=== PATIENT | female | born 1985 | race Caucasian/White ===

== ENCOUNTER 2017-09-25 19:41 | Emergency (ER) | payer OTHER ==
[~2017-09-25] VITALS: Ht 167.6 cm; Wt 105.0 kg
[~2017-09-25 19:41] MED LIST: BCPILLS PO; MECL1TAB42 PO; PANT1TAB3 PO
[2017-09-25 19:51] VITALS: BP 135/95; PULSE 109; TEMP 36.8; O2SAT 100; Ht 167.6 cm; Wt 105.0 kg
[2017-09-25] MEDS ORDERED: OXYCODONE/ACETAMINOPHEN 5-325 TAB PO ONE (20:15)
--- NOTE | 2017-09-25 20:41 | DIAGNOSTIC IMAGING REPORT ---
R ANKLE MIN 3 VIEWS ROUTINE CLINICAL HISTORY: Right ankle pain status post trauma COMPARISON: None. DISCUSSION: No fractures or dislocations are visualized. IMPRESSION: No fractures or dislocations identified. Electronically signed by: Nick Singh M.D. 09/25/2017 8:40 PM Dictated Date/Time: 09/25/2017 8:39 PM
--- NOTE | 2017-09-25 20:42 | DIAGNOSTIC IMAGING REPORT ---
R FOOT MIN 3 VIEWS ROUTINE CLINICAL HISTORY: Right foot pain status post trauma COMPARISON: 03/05/2012 DISCUSSION: Postsurgical changes involve the second and third metatarsal heads. There are no acute fractures. There are no dislocations. There are no erosive changes. IMPRESSION: Postsurgical change. No acute fractures. Electronically signed by: Nick Singh M.D. 09/25/2017 8:41 PM Dictated Date/Time: 09/25/2017 8:40 PM
[2017-09-25] MEDS ORDERED: TRAM-10 PO (21:06)
[2017-09-25] MEDS ORDERED: TRAMADOL HCL 50 MG HOME PACK PO ONE (21:15)
--- NOTE | 2017-09-26 00:42 | EMERGENCY ROOM VISIT NOTE ---
ED Visit Note First contact with patient: 19:56 Chief Complaint: Right foot and ankle pain. History of Present Illness: Ms. Garcia is a 32-year-old white female who is brought into the ED via wheelchair accompanied by male friend complaining of right foot and ankle pain. Historically patient reports she has had right foot surgery on her toes many years ago. Patient reports approximately 2 hours ago she reports she was walking to the car , slipped on the porch and twisted her right ankle and then slid her foot into a curb. She reports she immediately experienced right ankle and foot pain after her injury. Since that time her pain has been constant. She places her discomfort over the area of the medial and lateral malleolus, anterior talus and the fourth metatarsal. She describes her pain as a combination of throbbing and sharp she rates her discomfort 8/10. Her pain is nonradiating. Her pain worsens with ambulation, all movements of the ankle, palpation, inversion, plantar flexion. She has not identified any alleviating factors related to the pain. He has not taken a medication for pain prior to arrival at the hospital. She denies any loose related knee pain, lower leg pain, foot weakness/numbness/tingling. Review of Systems: As noted above in history of present illness. Past Medical History: As previously noted and unspecified right knee surgery. Current Medications: Protonix, control. Allergies to Medications: Patient denies. Social History: Patient is currently employed; she feels safe in her home environment; she admits to back or now call use. Physical Examination: Vital Signs: Date Time Temp Pulse Resp B/P (MAP) Pulse Ox O2 Delivery O2 Flow Rate FiO2 09/25/17 19:51 36.8 109 18 135/95 100 Room Air GENERAL: 32-year-old female in moderate distress due to pain, nontoxic-appearing , afebrile and hemodynamically stable. NEUROLOGICAL: Awake, alert and oriented to person, place and time. Answering questions appropriately and following commands. SKIN: Warm, dry and pink. No soft tissue trauma noted. LEFT LOWER EXTREMITY: No gross bony deformity. No shortening or malrotation. No tenderness in the hip, thigh, knee and anterior lower leg. Mild tenderness over the 2-3 cm above the talus over the tibia and fibula. Moderate tenderness over the medial and lateral malleolus and is moderate swelling throughout the ankle. I do not appreciate any bony deformity or crepitus. She has significant amount of tenderness with all ligamentous testing. There is mild tenderness over the fourth metatarsal without bony deformity or crepitus. She was able to wiggle her toes without difficulty. Distal pulses are intact. Capillary refill is brisk. She was able to distinguish light sensations to light touch. Decreased range of motion in all movements of the ankle due to pain and swelling. ED Course: Patient is assessed as noted above. Patient's medication list was reviewed. Patient was given one Percocet 5/325 mg tablet by mouth for pain and ice for swelling. Right Ankle X-Rays: Were read by myself and the radiologist showing no acute fractures or dislocations. Right Foot X-Rays: Were read by myself and the radiologist showing no acute fractures or dislocations. Radiologist does note postsurgical changes involving the second and third metatarsal heads. Patient was placed in a postop shoe and on nonweightbearing crutches. Patient was educated about today's findings and instructed on her treatment plan ; she verbalized understanding and agreement with this plan. Clinical Impression: Right ankle pain. Right foot pain. Disposition: Patient discharged home in stable condition accompanied by male friend; prior to departure she was reassessed and subjectively reported she was feeling better and rated her discomfort 6/10. Plan: Comfort measures including rest, ice, elevation, gel splint and crutches use and a prescription for Ultram were discussed with the patient; her name was checked in the state database and no red flags were noted and she was given appropriate narcotic precautions. Patient was encouraged to follow-up with child support specialist if no better in 7 days. Patient was encouraged return ED for worsening/uncontrolled pain, worsening/ uncontrolled swelling, foot weakness/numbness/tingling or any new/concerning symptoms
== END 2017-09-25 21:14 | disposition home or self-care (01) ==
LOC: C.EDB 19:42 → C.EDD 21:14
DX: M79.671 Pain in right foot (principal); M25.571 Pain in right ankle and joints of right foot; Z98.890 Other specified postprocedural states

== ENCOUNTER → 2018-01-27 | Day surgery (SDC) | payer OTHER ==
[2017-12-07 08:35] VITALS: BMI 34.0
--- NOTE | 2018-01-26 22:43 | History and Physical ---
History & Physical Date January 26, 2018. Chief Complaint right ankle pain History of Present Illness The patient is a 33 year old female with complaints of right ankle pain after a fall on 09.25.17. She had an MRI which noted a probable ATFL tear and a stress fx of the neck of the talus. She did not progress with conservative management and is now being set up for surgical tx. Past Medical/Surgical History Medical Problems: (1) ESOPHAGEAL REFLUX Surgical Problems: (1) S/P tonsillectomy (2) knee surgery (3) foot surgery Social history Occasional smoker Allergies Coded Allergies: No Known Allergies (Verified , 12/07/17) Home Medications Scheduled Control Pills ( Control Pills), 1 TAB PO DAILY Pantoprazole (Protonix), 40 MG PO QAM Scheduled PRN Diphenhydramine Hcl (Benadryl Allergy), 25 MG PO DAILY PRN for Seasonal Allergies Physical Examination Skin: warm/dry, no rash Eyes: normal inspection ENT: normal ENT inspection Head: normocephalic, atraumatic Neck: supple, no adenopathy, trachea midline Respiratory/Chest: lungs clear, normal breath sounds, no respiratory distress Cardiovascular: regular rate, rhythm Abdomen / GI: normal bowel sounds, non tender Extremities: + pertinent finding (Right ankle: Lateral ankle swelling. Tender over the ATFL. Painful PROM. Anterior drawer and talar tilt are positive.) Neurologic/Psych: no motor/sensory deficits, alert, oriented x 3 Diagnosis Right ankle instability Right ankle anterior talofibular ligament tear Right talus stress fx at the neck of the talus. Plan of Treatment Recommend a right ankle scope with synovectomy, open modified Brostrom with Arthrex internal brace, closed tx of talus fx. All potential risks, benefits, complications, alternatives, and rehab have been discussed with the patient and she wishes to proceed. She will be scheduled for 01.27.18 with plan for ASA 81 mg BID x 30 days.
[~2018-01-27] VITALS: Ht 170.2 cm; Wt 100.0 kg
[~2018-01-27] MED LIST changes: +ACET-1311 PO; +ACETAMINOPHEN 1000 MG/100 ML IV IV ONE; +ASPI81TA28 PEG; +ATROPINE SULFATE 0.1 MG/ML 5ML SYR IV PRN; +BUPIVACAINE 0.5 % 5 MG/1 ML MPF 30ML VIAL ONE; +CEFAZOLIN 2000MG IV PUSH 15 ML IV SCH; +CIPROFLOXACIN / D5W 400 MG IV SCH; +DEXAMETHASONE SOD INJ 4 MG/ML VIAL ONE; +DIPH1TAB87 PO; +EpHEDrine SULFATE 50MG/5ML SYR ONE; +EpHEDrine SULFATE INJ 50 MG/ML AMP IV PRN; +EpINEphrine HCL INJ 1 MG/ML 1ML SYRINGE ONE; +EpINEphrine INJ 1MG/ML AMP 1 MG/ML AMP ONE; +FENTANYL CITRATE INJ 50 MCG/1 ML 2 ML VIAL ONE; +FLUMAZENIL 0.1 MG/1 ML 10 ML VIAL IV PRN; +HYDROmorphone INJ 0.5 MG/0.5 ML SYR ONE; +HYDROmorphone INJ 1 MG/ML SYR IV PRN; +HYDROmorphone INJ 2 MG/ML SYR/VIAL ONE; +LABETALOL HCL IV 5 MG/ML 20ML IV PRN; +LACTATED RINGER'S 1000ML 1,000 ML IV SCH; +LIDOCAINE HCL 2% 2 ML VIAL (20MG/ML) ONE; -MECL1TAB42 PO; +MEPERIDINE HCL 25 MG/ML CARP IV PRN; +MIDAZOLAM HCL 1 MG/ML 2ML VIAL ONE; +MoRPHine SULFATE 10 MG/ML CARP/VIAL IV PRN; +NALOXONE HCL 0.4 MG/1 ML VIAL/CARP IV PRN; +ONDANSETRON INJ 2 MG/ML 2 ML VIAL IV PRN; +ONDANSETRON INJ 2 MG/ML 2 ML VIAL ONE; +OXYC-57 PO; +OXYCODONE/ACETAMINOPHEN 5-325 TAB PO PRN; +PHENYLEPHRINE 100MCG/ML 5ML SYR IV PRN; +PHENYLEPHRINE 100MCG/ML 5ML SYR ONE; +PROM25TA9 PO; +PROPOFOL IV EMULSION 10 MG/ML 20 ML VIAL ONE; +ROPIVACAINE 0.5% 5 MG/ML 30 ML VIAL ONE
[2018-01-27 10:15] VITALS: BP 123/87; PULSE 85; TEMP 36.7; O2SAT 99; Ht 170.2 cm; Wt 100.0 kg
--- NOTE | 2018-01-27 10:48 | History & Physical Bridge Note ---
H&P Re-Evaluation Bridge Note: I have examined the patient, reviewed the History & Physical and in the interval since the performance of the History & Physical I have noted the following changes of clinical significance: No changes noted
--- NOTE | 2018-01-27 15:52 | Discharge Instructions ---
Discharge Instructions Date of Service January 27, 2018. Admission Reason for Admission: Nondisplaced Fracture Of Neck Of Right Talus, Init Discharge Discharge Diagnosis / Problem: right ankle instability Discharge Goals Goal(s): Decrease discomfort, Improve function Activity Recommendations Activity Limitations: per Instructions/Follow-up section Weightbearing Status: Right non-weightbearing . Instructions / Follow-Up Instructions / Follow-Up ACTIVITY RECOMMENDATIONS: Limitations: No weight bearing to affected limb at all times. SPECIAL CARE INSTRUCTIONS: * Take Aspirin 81 mg by mouth every 12 hours for 30 days. * Some drainage onto the dressing is normal and is no cause for alarm. * Some swelling is natural especially after walking. * When resting, keep your foot elevated above the level of your heart. * Call [facility] if you notice: -Increased drainage -Fever over 101 degrees F -Severe constant pain BANDAGE: * Leave bandage/cast in place unless otherwise directed. * Keep bandage/cast dry at all times. FOLLOW UP VISIT WITH DR. FRANCE If appointment is not already scheduled: Please call [facility] after you get home today to schedule a follow-up appointment for [address] France at . Current Hospital Diet Patient's current hospital diet: Discharge Diet Recommended Diet: Regular Diet Pending Studies Studies pending at discharge: no Medical Emergencies . Who to Call and When: Medical Emergencies: If at any time you feel your situation is an emergency, please call 101 immediately. . Non-Emergent Contact Non-Emergency issues call your: Surgeon Call Non-Emergent contact if: temperature is above 101, your pain is not controlled, your pain is worsening . "Provider Documentation" section prepared by Abhishek Sun. .
--- NOTE | 2018-01-27 18:05 | [facility] Post Operative Brief Note ---
Immediate Operative Summary Operative Date January 27, 2018. Pre-Operative Diagnosis Right ankle instability, Right ankle anterior talofibular ligament tear, Right talus fx at the neck of the talus, osteochondral defect of superior lateral talus, loose body, synovitis Post-Operative Diagnosis Right ankle instability, Right ankle anterior talofibular ligament tear, Right talus fx at the neck of the talus, osteochondral defect of superior lateral talus, loose body ([id number]), synovitis Procedure(s) Performed Right Ankle Arthroscopic Debridement, Open Modified Brostrom Procedure with Arthrex Internal Brace, Closed Treatment of Talus Fracture, Drilling Osteochondral defect superior lateral talus, removal loose body ([id number]), synovectomy, Closed treatment talar neck fracture. Surgeon Dr. Adonay Oneal Restaurant Hospitality Manager Surgeon(s) None Estimated Blood Loss 2cc Findings Consistent with Post-Op Diagnosis Specimens None Drains None Anesthesia Type General Regional Complication(s) none Disposition Accompanied Pt To Recover: no Disposition: Recovery Room / PACU
[2018-01-27] MEDS: HYDROmorphone INJ 0.5 MG/0.5 ML SYR ONE ×2 (18:39→18:40)
[2018-01-27 19:34] VITALS: BP 127/82; PULSE 96; TEMP 36.4; O2SAT 98
[2018-01-27 20:02] VITALS: BP 113/76; PULSE 84; TEMP 36; O2SAT 96
--- NOTE | 2018-01-27 20:47 | OPERATIVE REPORT ---
DATE OF OPERATION: 01/27/2018 PREOPERATIVE DIAGNOSES: 1. Right ankle lateral ligament instability. 2. Anterior talofibular ligament tear. 3. Nondisplaced talar neck fracture. POSTOPERATIVE DIAGNOSES: 1. Right ankle lateral ligament instability. 2. Anterior talofibular ligament tear. 3. Nondisplaced talar neck fracture. 4. Osteochondral defect of the superior lateral talus. 5. Loose body of the right ankle (9 x 8 x 7 mm). 6. Synovitis of the ankle joint. PROCEDURES: 1. Right ankle arthroscopy with osteochondral drilling of the superior lateral talus. 2. Removal of loose body measuring (9 x 8 x 7 mm). 3. Synovectomy of the ankle joint. 4. Open modified Brostrom reconstruction with Arthrex internal brace. 5. Closed treatment talus fracture with splint. SURGEON: Baltazar Oneal DO PREDATORY ANIMAL HUNTER: None. ANESTHESIA: General with regional. SPECIMENS: None. DRAINS: None. COMPLICATIONS: None. BLOOD LOSS: 2 mL PERTINENT HISTORY: This is a 33-year-old female who sustained a twisting injury to right lower extremity, is unable to ambulate, and difficulty with weightbearing. She attempted and failed conservative management including use of a boot and a brace, physician-directed home exercises, physical therapy, anti-inflammatories and topical analgesics. The patient had an MRI, which demonstrated a nondisplaced talar neck fracture, questionable osteochondral defect superior lateral talus and a tear of the anterior talofibular ligament. Clinical features demonstrated lateral ankle ligament instability and ongoing ankle pain. The patient was scheduled for surgery as indicated. All potential risks, benefits, complications, alternatives, rehab, potential for incomplete relief of symptoms, need for further surgery, DVT, PE, , persistent pain, swelling, scarring, weakness, neurovascular injury, wound complication, hardware failure, nonunion, malunion were discussed with the patient. The patient decided to proceed with the procedure as indicated. DESCRIPTION OF PROCEDURE: After regional block was administered in the preop holding area, the patient was taken to the operative suite, placed supine on the operating room table. I reviewed consent and identification of proper operative site, the patient was anesthetized, LMA was placed. Tourniquet was placed on the right thigh over cast padding. Right lower extremity was then sterilely prepped and draped in the usual fashion, elevated and exsanguinated her bandage, tourniquet inflated to 350 mmHg. Next, right lower extremity was then sterilely prepped and draped in usual fashion. The ankle joint was injected with approximately 10 mL of 0.5% Marcaine with epinephrine followed by a small incision anterior medial aspect of the ankle joint just medial to the tibialis anterior. This was made with an 11 blade scalpel followed by placement of blunt trocar and sleeve camera and inflow. Next, sequential diagnostic arthroscopy commenced in the ankle joint, noting significant synovitis. There is a large loose body measuring 9 x 8 x 7 mm. Lateral portal was established using an 18 gauge spinal needle followed by placing 11 blade scalpel incision and then an arthroscopic grasper was used to manipulate and remove the large loose body. Upon further inspection, there was noted to be synovitis throughout, 3.5 mm sucker shaver was then used to perform synovectomy and the chondral surfaces were inspected. There was noted to be a large osteochondral defect of the superior lateral talus. At this point, a 0.035 inch K-wire was then used to make multiple drill holes into the osteochondral lesion, thus performing an osteochondral drilling. The depth of drilling was approximately 6 mm. This encouraged local mesenchymal stem cell proliferation and healing of the defect. Next, all particulate debris was flushed from the ankle joint. The arthroscope was removed followed by closure of the portal sites with interrupted 4-0 nylon sutures. Next, a 15 blade scalpel was used to make an incision on the distal lateral aspect of the fibula. The incision was deepened through the subcutaneous tissue. Meticulous hemostasis was achieved with cautery. Full thickness skin flaps were developed followed by incision of the superficial peroneal retinaculum, which was then retracted and protected. The periosteal sleeve and remnant of the anterior talofibular ligament was then sharply incised at the distal aspect of the fibula. The periosteum was then elevated at the distal lateral aspect of the fibula followed by decortication at the distal aspect of the fibula. Next, the peroneal tendon sheath was then entered with a 15 blade scalpel. The tendons were retracted and protected with a house retractor and the calcaneofibular ligament was then plicated with a #2 FiberWire suture. Next, the Arthrex internal brace drill was drilled into the lateral process of the talus avoiding both the talofibular articulation and the subtalar articulation. This was followed by placement 4.75 mm SwiveLock anchor into the lateral talus. The FiberTape and the #2 FiberWire suture were then passed through the anterior talofibular ligament and then through the undersurface of the periosteal tissue distal aspect of the fibula. The second PushLock anchor was then drilled lateral fibula. The foot was held in neutral dorsiflexion with slight eversion. This was then followed by threading of the FiberTapes through the PushLock, which was then screwed into the lateral fibula, taking care to avoid overtightening of the FiberTapes. Next, the excess suture was then cut with a 15 blade scalpel. The #2 FiberWire suture was then passed through the superficial peroneal retinaculum and then under the distal lateral fibula in a [id number] fashion. The suture was then tied and cut and then the suture limbs were then repassed distal to the fibula to force the knot stack to lie distally and to also capture the superficial peroneal retinaculum laterally. Anterior drawer testing was performed, was noted to be stable. Lateral talar tilt testing was also performed, also noted to be stable after reconstruction. The incision was copiously irrigated with sterile normal saline. The peroneal tendon sheath was then closed using 2-0 Vicryl. The dermis was closed using buried interrupted 3-0 Vicryl and the skin was closed using 4-0 nylon. A sterile compressive dressing and bulky Aric Del Rio plaster splint was applied overwrapped with an Mio wrap. The foot was held in neutral dorsiflexion and slight eversion. After the splint had hardened, the tourniquet was released. The patient was awakened and taken to recovery in stable condition. I attest to the content of the Intraoperative Record and any orders documented therein. Any exception s are noted below.
== END | disposition home or self-care (01) ==
LOC: C.ACU 09:59
PROVIDERS: ATTEND Orthopaedic Surgery Sports Medicine
DX: M25.371 Other instability, right ankle (principal); S93.491A Sprain of other ligament of right ankle, initial encounter; S92.114A Nondisplaced fracture of neck of right talus, initial encounter for closed fracture; M93.271 Osteochondritis dissecans, right ankle and joints of right foot; M24.071 Loose body in right ankle; M65.871 Other synovitis and tenosynovitis, right ankle and foot; E66.9 Obesity, unspecified; Z68.34 Body mass index [BMI] 34.0-34.9, adult; F17.200 Nicotine dependence, unspecified, uncomplicated; W19.XXXA Unspecified fall, initial encounter; Z90.89 Acquired absence of other organs; Z98.890 Other specified postprocedural states; Z79.3 Long term (current) use of hormonal contraceptives; Z79.899 Other long term (current) drug therapy

== ENCOUNTER 2019-03-27 07:27 | Inpatient (IN) ==
--- OUTSIDE RECORDS SUMMARY | 2019-03-27 07:33 | External Medical Summary | Continuity of Care Document ---
:1985 Author Name Jose G Gan, Provider Address Unavailable Unavailable , Care Team Providers Name Role Phone Richa Tovar Unavailable [email or web address], [email or web address] Unavailable Unavailable Unavailable Unavailable Unavailable Problems Chronic reflux esophagitis (530.11) (K21.0) Vulvovaginitis (616.10) (N76.0) Encounter for routine gynecological exam ination with Papanicolaou smear of cervix (V72.31) (Z01.419) Esophageal stricture (530.3) (K22.2) Ovarian cyst (620.2) (N83.20) Encounter for blood typing (V72.86) (Z01.83) Esophageal reflux (530.81) (K21.9) Pelvic pain (R10.2) Screening examination for venereal disease (V74.5) (Z11.3) Allergies and Adverse Reactions No Known Drug Allergies (Allergy) Medications Omeprazole 20 MG Oral Capsule Delayed Release; Take 1 capsule twice daily PURVI Hernadez Start: 15-Jul-2012 Quantity: 180 Refills: 2 PriLOSEC CPDR Refills: 0 Procedures History of Esophageal Dilation Status: C ompleted History of Vulvar Incision And Drainage Status: Completed History of Oral Surgery Tooth Extraction Status: Completed Immunizations Immunizations not documented Family History Unknown Family Member Family history of Hypertension (V17.49) Status: Active Comments: Family History Family history of Diabetes Mellitus (V18.0) Status: Active Comments: Family History Plan of Treatment Planned Observations Planned Goals not documented Results No Known Results Results not documented
[2019-03-27] MEDS ORDERED: OXYTOCIN 30 UNITS/500 ML BAG IV PRN ×2 (09:48→21:50)
[2019-03-27] MEDS ORDERED: miSOPROStol 50 MCG TAB PO ONE (09:59)
[2019-03-27 10:20] LABS: Hematocrit (blood only) 29.4 % (37-47); Hemoglobin 9.9 g/dL (12.0-16.0); Mean Corpuscular Volume 86.5 fL (80-100); Platelet Count 182 K/uL (130-400); RDW Coefficient of Variation 15.3 % (11.5-14.5); RDW Standard Deviation 48.1 fL (36.4-46.3); White Blood Count 8.55 K/uL (4.8-10.8)
[2019-03-27 10:29] LABS: Mean Corpuscular Hgb Conc 33.7 g/dL (32-36)
--- NOTE | 2019-03-27 12:07 | Labor Progress Brief Note ---
Date of Service March 27, 2019 met pt and spouse H&P done discussed and reviewed induction Bedside sono; Vt FHR; CAT1 Ctx; minimal VE; ft/post Plan Cytotec Results & Data Vital Signs (Past 12 Hours) Vital Signs Temp Pulse Resp BP 03/27/19 11:20 36.9 C 67 18 120/75 03/27/19 07:52 36.7 C 18 03/27/19 07:34 88 124/75
[2019-03-27] MEDS ORDERED: miSOPROStol 50 MCG TAB PO SCH (15:30)
--- NOTE | 2019-03-27 21:52 | Labor Progress Brief Note ---
Date of Service March 27, 2019 pt doing well Induction for obesity Received 2 Cytotec FHR; CAT1 Ctx irregular, minimal discussed Pitocin augmentation pt agreed Results & Data Vital Signs (Past 12 Hours) Vital Signs Temp Pulse Resp BP 03/27/19 19:00 36.8 C 61 18 130/80 03/27/19 15:44 36.9 C 20 03/27/19 15:42 72 123/69 03/27/19 12:07 37 C 68 20 133/74 03/27/19 11:20 36.9 C 67 18 120/75
[2019-03-27] MEDS: LACTATED RINGER'S 1,000 ML IV PRN (22:36)
--- NOTE | 2019-03-28 00:06 | History and Physical Report ---
DATE OF ADMISSION: 03/27/2019 HISTORY OF PRESENT ILLNESS: The patient is a 34-year-old G3, P2, due date was 03/23/2019, making her 40 weeks and 3 days, presented to labor and delivery for induction of labor secondary to obesity. The patient's has been unremarkable. LABORATORIES: Blood type O negative, antibody negative, rubella immune, GBS negative. COURSE: with no complication except for right pyelectasis of the fetus seen on several ultrasounds including maternal medicine scan. PAST MEDICAL HISTORY: History of dysphagia, history of ruptured ovarian cyst and abnormal Pap smears. PAST SURGICAL HISTORY: History of colposcopy, knee surgery and EGDs. ALLERGIES: No known drug allergies. SOCIAL HISTORY: The patient denies tobacco, drug or alcohol use. FAMILY HISTORY: Noncontributory. SHIRT TURNER HISTORY: The patient delivered a live female in November of 2004 and also in December 2005. Infant's weight 8 pound 1 ounce and 8 pounds 3 ounces respectively. PHYSICAL EXAMINATION: GENERAL: Well-developed, well-nourished white female in no acute distress. HEART: S1, S2, regular rhythm and rate. LUNGS: Clear to auscultation bilaterally. ABDOMEN: Gravid. Bedside ultrasound shows cephalic presentation. EXTREMITIES: No cyanosis, clubbing, edema. PELVIC: On admission is fingertip, 50%, and -2. ASSESSMENT AND PLAN: A 34-year-old G3, P2 at 40 weeks and 3, here for induction of labor for prolonged gestation as well as obesity. Plan is to admit patient and start induction and anticipate vaginal delivery.
[2019-03-28] MEDS: LACTATED RINGER'S 1,000 ML IV PRN ×2 (06:17→10:44)
[2019-03-28] MEDS ORDERED: BUPIVACAINE 0.25% 30 ML VIAL ONE (06:46)
[2019-03-28] MEDS ORDERED: fentaNYL citrate 100 MCG/2 ML VIAL ONE (06:46)
[2019-03-28] MEDS ORDERED: fentaNYL 2MCG/ML ROPIV 1.25MG/ML 100 ML BAG EPI ONE (06:46)
[2019-03-28] MEDS ORDERED: ePHEDrine sulfate 50 MG/ML AMP ONE (06:46)
[2019-03-28] MEDS ORDERED: DiphenhydrAMINE HCL 50 MG/ML VIAL IV PRN (07:06)
[2019-03-28] MEDS ORDERED: NALBUPHINE HCL INJ 10 MG/ML AMP IV PRN (07:06)
[2019-03-28] MEDS ORDERED: NALOXONE HCL 1 MG in SODIUM CHLORIDE 0.9% 1000ML 1,000 ML IV PRN (07:06)
[2019-03-28] MEDS ORDERED: ePHEDrine sulfate 50 MG/ML AMP IV PRN (07:06)
[2019-03-28] MEDS ORDERED: NALOXONE HCL 0.4 MG/1 ML VIAL/CARP IV PRN (07:06)
[2019-03-28] MEDS ORDERED: fentaNYL 2MCG/ML ROPIV 1.25MG/ML 100 ML BAG EPI PRN (07:06)
[2019-03-28] MEDS ORDERED: ONDANSETRON INJ 2 MG/ML 2 ML VIAL IV PRN (07:06)
--- NOTE | 2019-03-28 07:09 | Anesthesiology Consultation ---
Date of Service March 28, 2019 Assessment & Plan Chart Review Chart Review: Patient NOT seen in Pre Admission Testing and Acceptable Risk for Labor Epidural Consults Requested none ASA ASA2 Proposed Anesthesia Anesthesia Type: Labor Epidural and CSE Risk / Benefits Reviewed With: PT / POA / Parent / Guardian, Accepts Plan and Informed Consent Obtained History Height/Weight Height: 5 ft 6 in Weight: 119.748 kg Allergies Allergy/AdvReac Type Severity Reaction Status Date / Time No Known Allergies Allergy Unknown Verified 03/27/19 07:36 Medications Home Medications Medication Instructions Recorded Confirmed Last Taken ferrous sulfate [Iron (ferrous 325 mg PO DAILY 03/27/19 03/27/19 03/27/19 06:00 sulfate)] pantoprazole 40 mg PO BID 03/27/19 03/27/19 03/27/19 06:00 vit-iron fum-folic ac 1 tab PO DAILY 03/27/19 03/27/19 03/27/19 06:00 [ Vitamin] Active Medications Generic Name Dose Route Start Last Admin Trade Name Freq PRN Reason Stop Dose Admin Lactated Ringer's 1,000 mls @ 125 mls/hr 03/27/19 09:48 03/28/19 06:33 Lr IV 03/29/19 09:47 999 mls/hr .Q8H PRN Infusion L&D Protocol Protocol Oxytocin 30 units in 500 mls @ 10 mls/hr 03/27/19 21:50 03/28/19 05:30 Pitocin IV 03/29/19 21:49 0.6 units/hr .Q24H PRN 10 mls/hr Labor Induction/Augmentation Titration Protocol 0.6 UNITS/HR NPO Date Last Intake of Fluids: 03/28/19 Time Last Intake of Fluids: 04:00 Date Last Intake of Solids: 03/27/19 Time Last Intake of Solids: 19:00 Past Medical History Medical History Dysphagia Eosinophilic esophagitis Esophageal reflux Hx LEEP (loop electrosurgical excision procedure), cervix, Hx of ovarian cyst Obesity Exercise / Class Metabolic Activity II 4-5 Yardwork/Stairs/Walk up hill Past Surgical History Surgical History History of ankle surgery History of esophagogastroduodenoscopy (EGD) Hx of knee surgery Hx of tonsillectomy Past Anesthesia History No Hx of Anesthesia Complications and No Family Hx of Anesthesia Complications History of PONV No Hx of PONV Social History Smoking Status: Former smoker Hx Alcohol Use: No Hx Substance Use: No substance use type: does not use Review of Systems no chest pain or sob Physical Exam Vital Signs Last Vital Signs Temp 36.6 C 03/28/19 06:00 Pulse 68 03/28/19 06:33 Resp 16 03/28/19 06:00 BP 126/83 03/28/19 06:33 SpO2 98 Constitutional + morbidly obese ENMT Mouth: no TMJ abnormality Thyromental Distance: > or= 3.5 Finger Breadths Mallampati Class: II Neck normal visual inspection Respiratory normal respiratory effort Auscultation: lungs clear to auscultation bilaterally Cardiovascular Rate/Rhythm: regular rate and regular rhythm Musculoskeletal Spine: normal cervical ROM Neurologic moves all extremities Psychiatric Orientation: alert and oriented x 3 Testing Laboratory Results 03/27/19 10:07
--- NOTE | 2019-03-28 10:33 | History & Physical Bridge Note ---
Date of Service March 28, 2019 History & Physical Bridge Note I have examined the patient, reviewed the History & Physical and in the interval since the performance of the History & Physical I have noted the following changes of clinical significance: patient requesting bilateral tubal ligation. New consent signed by patient.
--- NOTE | 2019-03-28 13:27 | Obstetrical Progress Note ---
Date of Service March 28, 2019 Physical Exam Genitourinary: Manual OB Exam: + cervical dilation fingertip, + cervical effacement 50% and + station high OB Exam Monitor Tracing: + external FHT monitor used and + external uterine monitor used continue Oxytocin Results & Data Vital Signs (Past 12 Hours) Vital Signs Temp Pulse Resp BP Pulse Ox 03/28/19 13:21 82 99 03/28/19 13:17 62 124/69 03/28/19 13:16 61 98 03/28/19 13:11 63 98 03/28/19 13:06 59 L 97 03/28/19 13:01 76 126/67 98 03/28/19 12:56 65 98 03/28/19 12:51 65 98 03/28/19 12:46 81 98 03/28/19 12:45 63 115/55 L 03/28/19 12:41 73 98 03/28/19 12:36 61 98 03/28/19 12:31 69 117/62 98 03/28/19 12:26 84 95 03/28/19 12:21 82 98 03/28/19 12:16 70 118/70 99 03/28/19 12:11 83 97 03/28/19 12:09 37.0 C 16 03/28/19 12:06 63 98 03/28/19 12:01 66 111/67 98 03/28/19 11:56 65 99 03/28/19 11:51 65 99 03/28/19 11:46 72 100 03/28/19 11:45 62 108/57 L 03/28/19 11:41 63 97 03/28/19 11:36 67 99 03/28/19 11:31 82 118/60 100 03/28/19 11:26 68 99 03/28/19 11:21 67 98 03/28/19 11:16 64 107/58 L 98 03/28/19 11:11 76 99 03/28/19 11:06 60 98 03/28/19 11:01 60 107/55 L 99 03/28/19 10:56 84 99 03/28/19 10:51 60 99 03/28/19 10:46 90 123/76 100 03/28/19 10:41 79 97 03/28/19 10:36 74 95 03/28/19 10:31 80 97 03/28/19 10:30 71 120/77 03/28/19 10:26 64 98 03/28/19 10:21 66 99 03/28/19 10:16 60 116/73 98 03/28/19 10:11 66 98 03/28/19 10:06 66 99 03/28/19 10:01 71 119/78 99 03/28/19 09:56 65 97 03/28/19 09:51 60 98 03/28/19 09:46 69 128/78 99 03/28/19 09:41 73 100 03/28/19 09:40 37.2 C 16 03/28/19 09:36 65 98 03/28/19 09:31 58 L 122/72 98 03/28/19 09:26 64 98 03/28/19 09:21 61 98 03/28/19 09:16 61 119/66 98 03/28/19 09:11 59 L 98 03/28/19 09:06 61 98 03/28/19 09:02 58 L 116/66 03/28/19 09:01 59 L 97 03/28/19 08:56 59 L 98 03/28/19 08:51 61 98 03/28/19 08:46 66 111/62 99 03/28/19 08:41 58 L 97 03/28/19 08:36 60 98 03/28/19 08:31 56 L 98 03/28/19 08:30 58 L 113/61 03/28/19 08:26 62 97 03/28/19 08:21 67 98 03/28/19 08:16 67 100 03/28/19 08:15 54 L 111/62 03/28/19 08:11 67 98 03/28/19 08:06 65 100 03/28/19 08:01 60 98 03/28/19 08:00 60 110/60 03/28/19 07:56 62 98 03/28/19 07:51 75 99 03/28/19 07:46 74 99 03/28/19 07:44 60 111/57 L 03/28/19 07:41 69 98 03/28/19 07:39 65 117/64 03/28/19 07:36 78 99 03/28/19 07:34 37.0 C 16 03/28/19 07:33 66 115/61 03/28/19 07:31 66 114/57 L 98 03/28/19 07:29 67 118/63 03/28/19 07:27 66 119/56 L 03/28/19 07:26 66 99 03/28/19 07:25 73 133/77 03/28/19 07:21 87 99 03/28/19 07:19 111 H 93 03/28/19 07:16 78 98 03/28/19 07:11 70 100 03/28/19 06:33 68 126/83 03/28/19 06:00 36.6 C 16 03/28/19 05:33 77 116/78 03/28/19 04:35 67 115/64 03/28/19 03:33 70 116/67 03/28/19 02:34 36.9 C 72 16 113/69 03/28/19 01:33 88 109/67
[2019-03-28] MEDS ORDERED: DIPHTHERIA/TETANUS/PERTUSSIS 0.5 ML SYR/VIAL IM ONE (17:55)
[2019-03-28] MEDS ORDERED: MEASLES, MUMPS & RUBELLA VIRUS VIAL SQ ONE (17:55)
[2019-03-28] MEDS ORDERED: OXYTOCIN 30 UNITS/500 ML BAG IV PRN (17:55)
[2019-03-28] MEDS ORDERED: SUPERCREAM 0.870% 15 GM JAR EXT PRN (17:55)
[2019-03-28] MEDS ORDERED: HYDROCORTISONE ACETATE 25 MG SUPP PR PRN (17:55)
[2019-03-28] MEDS ORDERED: BISACODYL 10 MG SUPP PR PRN (17:55)
[2019-03-28] MEDS ORDERED: ACETAMINOPHEN 325 MG TAB PO PRN (17:55)
[2019-03-28] MEDS ORDERED: BENZOCAINE 20% AER SPR 82.5 GM CAN EXT PRN (17:55)
--- NOTE | 2019-03-28 18:04 | Procedure Note ---
Vaginal Delivery Summary Date of Service March 28, 2019 Vaginal Delivery Summary Delivery Note live male over intact perineum SHAHANA with shoulder cord x1 reduced at delivery. Apgars 8/9 weight pending. Delayed cord clamping followed by cord blood and spontaneous delivery of intact placenta with 3VC. No tears. EBL 200 ml. Final sponge and instrument count are correct. Mom and baby stable.
--- NOTE | 2019-03-28 18:34 | Anesthesia Procedure Note ---
Date of Service March 28, 2019 Anesthesia Post Epidural Note Vital Signs Vital Signs: Temp Pulse Resp BP Pulse Ox 37.0 C 81 20 135/75 97 03/28/19 14:56 03/28/19 18:11 03/28/19 16:42 03/28/19 18:06 03/28/19 18:11 Notes Mental Status: alert / awake / arousable and participated in evaluation Nausea / Vomiting: adequately controlled Pain: adequately controlled Airway Patency, RR, SpO2: stable & adequate BP & HR: stable & adequate Hydration State: stable & adequate Neuraxial Anesthesia: was administered and sensory block is resolving Anesthetic Complications: no major complications apparent and Pt Satisfied with anesthetic care Epidural: Removed without complications and With tip intact
[2019-03-28] MEDS ORDERED: PANTOprazole 40 MG TAB PO SCH (21:00)
[2019-03-28] MEDS: DOCUSATE SODIUM 100 MG CAP PO SCH (21:21)
[2019-03-28] MEDS: PANTOprazole 40 MG TAB PO SCH (21:21)
[2019-03-29] MEDS: IBUPROFEN 600 MG TAB PO PRN ×4 (03:39→23:58)
[2019-03-29 06:42] LABS: Hematocrit (blood only) 30.2 % (37-47); Hemoglobin 10.1 g/dL (12.0-16.0); Mean Corpuscular Hgb Conc 33.4 g/dL (32-36); Mean Platelet Volume 9.3 fL (7.4-10.4); Platelet Count 179 K/uL (130-400); RDW Standard Deviation 47.5 fL (36.4-46.3); Red Blood Count 3.47 M/uL (4.2-5.4); White Blood Count 10.87 K/uL (4.8-10.8)
--- NOTE | 2019-03-29 08:11 | Obstetrical Progress Note ---
Date of Service March 29, 2019 Physical Exam Physical Exam: abdomen soft and non tender vaginal bleeding scant to moderate ambulating well no calf tenderness hgb 10.1 Results & Data Vital Signs (Past 12 Hours) Vital Signs Temp Pulse Resp BP Pulse Ox 03/29/19 03:30 36.6 C 59 L 18 127/87 03/28/19 23:40 37.2 C 85 18 120/76 03/28/19 20:35 37.3 C 83 18 97
[2019-03-29] MEDS: PANTOprazole 40 MG TAB PO SCH ×2 (08:37→21:04)
[2019-03-29] MEDS: PRENATAL VITAMIN 1 TAB PO SCH (08:37)
[2019-03-29] MEDS: FERROUS SULFATE 325 MG TAB PO SCH (08:38)
[2019-03-29] MEDS: DOCUSATE SODIUM 100 MG CAP PO SCH ×2 (08:40→21:05)
[2019-03-29] MEDS ORDERED: NON-FORMULARY MEDICATION (Prenatal Vit-Iron Fum-Folic Ac [Prenatal Vitamin] 1 TAB) PO SCH (09:00)
[2019-03-29] MEDS ORDERED: NON-FORMULARY MEDICATION (Ferrous Sulfate [Iron (Ferrous Sulfate)] 325 MG) PO SCH (09:00)
[2019-03-29] MEDS ORDERED: BISACODYL 5 MG TABEC PO SCH (20:00)
[2019-03-30 07:43] LABS: Hematocrit (blood only) 29.7 % (37-47); Hemoglobin 9.7 g/dL (12.0-16.0)
--- NOTE | 2019-03-30 08:15 | Obstetrical Progress Note ---
Date of Service March 30, 2019 Assessment & Plan (1) normal course: PPD #2 pt doing well d/c home with instructions Subjective Ambulation: ambulating normally Voiding: no voiding problems Passing Gas:: Yes Diet Tolerance:: regular diet Lochia:: Small Feeding Type:: breast feeding Review of Systems All systems reviewed & are unremarkable except as noted in HPI & below Physical Exam Constitutional WD/WN, vitals as above well developed and well nourished Eyes PERRL, conjunctivae normal, anicteric sclerae Neck trachea midline, no thyromegaly Respiratory normal respiratory effort, lungs clear to auscultation Auscultation: no crackles, no rales and no wheezes Cardiovascular RRR, no murmur, no edema Gastrointestinal (Abdomen) normal bowel sounds, soft, nontender, no hepatosplenomegaly Uterus is below umbilicus Musculoskeletal no cyanosis or clubbing, extremities motor strength 5/5 Skin no rashes, warm and dry Neurologic patellar DTR's 2+ bilat, sensation intact Psychiatric A+Ox3, euthymic affect Genitourinary normal external appearance Results & Data Vital Signs (Past 12 Hours) Vital Signs Temp Pulse Resp BP Pulse Ox 03/30/19 00:00 37 C 75 18 125/81 98
[2019-03-30] MEDS: PRENATAL VITAMIN 1 TAB PO SCH (08:40)
[2019-03-30] MEDS: PANTOprazole 40 MG TAB PO SCH (08:40)
[2019-03-30] MEDS: DOCUSATE SODIUM 100 MG CAP PO SCH (08:40)
[2019-03-30] MEDS: IBUPROFEN 600 MG TAB PO PRN (08:41)
[2019-03-30] MEDS: FERROUS SULFATE 325 MG TAB PO SCH (08:41)
== END 2019-03-30 12:50 | disposition home or self-care (01) | DRG 807 ==
LOC: 4S1 07:27 → 4S2 03-28 20:36